=== PATIENT | female | born 2000 | race Caucasian/White ===

== ENCOUNTER 2024-03-20 05:55 | Inpatient (IN) | payer BC, MEDICAID ==
[2024-03-20 06:19] VITALS: BMI 33.1
[2024-03-20] MEDS ORDERED: hydrALAZINE 20 MG/ML VIAL SLOW IVP PRN ×2 (06:57→07:39)
[2024-03-20] MEDS ORDERED: Docusate 100 MG CAP PO PRN (07:39)
[2024-03-20] MEDS ORDERED: Zolpidem Tartrate 5 MG TAB PO PRN (07:39)
[2024-03-20] MEDS ORDERED: Lidocaine 1% (PF) 30 ML VIAL SC PRN (07:39)
[2024-03-20] MEDS ORDERED: Misoprostol 200 MCG TAB PR PRN (07:39)
[2024-03-20] MEDS ORDERED: Diphenoxylate HCl/Atropine Tablet PO PRN (07:39)
[2024-03-20] MEDS ORDERED: Promethazine HCl 25 MG/ML VIAL IM PRN ×2 (07:39→14:22)
[2024-03-20] MEDS ORDERED: Carboprost 250 MCG/ML AMP IM PRN (07:39)
[2024-03-20] MEDS ORDERED: Methylergonovine 0.2 MG/ML VIAL IM PRN (07:39)
[2024-03-20] MEDS ORDERED: Ondansetron PF 4 MG/2 ML Vial IVP PRN ×2 (07:39→14:22)
[2024-03-20] MEDS ORDERED: Tranexamic Acid 1,000 MG/10 ML VIAL IVP PRN (07:39)
[2024-03-20] MEDS ORDERED: Oxytocin 30 units/NS 500 ML 500 ML IV SCH (07:45)
[2024-03-20] MEDS ORDERED: Bupivacaine PF 0.5% 30 ML VIAL ONE (08:00)
[2024-03-20] MEDS ORDERED: Bupivacaine 0.25% HCL 30 ML VIAL ONE (08:00)
[2024-03-20] MEDS: Lactated Ringer's 1,000 ML IV SCH (09:32)
[2024-03-20] MEDS: Penicillin G Potassium 5 MILL.UNITS in Sodium Chloride 0.9% 100 ML IVPB SCH (09:32)
[2024-03-20] MEDS: Misoprostol 100 MCG TAB VAG SCH (09:32)
[2024-03-20 10:38] LABS: Hematocrit 37.7 % (34.9-44.5); Hemoglobin 12.4 g/dL (12.0-15.5); Mean Corpuscular HGB CONC 32.9 g/dL (32.0-36.0); Mean Corpuscular Hemoglobin 28.3 pg (27.0-33.0); Mean Corpuscular Volume 86.1 fL (81.6-98.3); Mean Platelet Volume 10.8 fL (7.4-10.4); Platelet Count 332 10x3/uL (150-450); RBC Distribution Width 12.8 % (11.5-14.5); Red Blood Cell (RBC) Count 4.38 10x6/uL (3.90-5.03); White Blood Cell (WBC) Count 13.6 10x3/uL (3.5-10.5)
[2024-03-20 11:07] LABS: Syphilis Antibody Nonreactive (Nonreactive); Syphilis Antibody Index 0.05 S/CO (<1.00 Non-Reactive)
[2024-03-20 11:08] LABS: Hep B Surf Ag - L&D Non-Reactive S/CO (NonReactive)
[2024-03-20 12:14] LABS: Fetal Membranes Rupture RUPTURE DETECTED (No Rupture)
[2024-03-20] MEDS: fentaNYL 50 mcg/mL 1 mL Vial SLOW IVP PRN (12:51)
[2024-03-20] MEDS: Oxytocin 30 units/NS 500 ML 500 ML IV SCH (12:57)
[2024-03-20] MEDS: fentaNYL/Ropivacaine Epidural 100 ML ONE (14:15)
[2024-03-20] MEDS ORDERED: diphenhydrAMINE 50 MG/ML VIAL IVP PRN (14:22)
[2024-03-20] MEDS ORDERED: Lactated Ringer's 500 ML IV PRN (14:22)
[2024-03-20] MEDS ORDERED: Naloxone HCl 0.4 mg/ml Vial IVP PRN ×2 (14:22)
[2024-03-20] MEDS ORDERED: Moisturizing Cream (Eucerin) 113 GM JAR TOP PRN (14:22)
[2024-03-20] MEDS ORDERED: Acetaminophen 325 MG TAB PO PRN (14:22)
[2024-03-20] MEDS ORDERED: ePHEDrine Sulfate 50 MG/10 ML VIAL SLOW IVP PRN (14:22)
[2024-03-20] MEDS ORDERED: fentaNYL 2 mcg/Ropivacaine 0.2% Epidural 100 ML CADD EPIDURAL SCH (14:30)
[2024-03-20] MEDS ORDERED: Communication Order-Pharmacy FS SCH (14:30)
[2024-03-20] MEDS: Penicillin G 2.5 MILL.units 2.5 MILL.UNITS in Premix 1 BAG IVPB SCH (19:16)
[2024-03-20] MEDS: Acetaminophen 500 MG TAB PO PRN (22:00)
[2024-03-21] MEDS: Ampicillin 2 GM in Sodium Chloride 0.9% 100 ML IVPB SCH (06:37)
[2024-03-21] MEDS: Ibuprofen 800 MG TAB PO SCH (06:42)
[2024-03-21] MEDS: Gentamicin Sulfate 80 MG in Premix 1 BAG IVPB SCH (07:08)
[2024-03-21] MEDS ORDERED: diphenhydrAMINE 25 MG CAP PO PRN (07:45)
[2024-03-21] MEDS ORDERED: Lanolin Ointment 7 GM TUBE TOP PRN (07:45)
[2024-03-21] MEDS ORDERED: Preparation H Ointment 28 GM TUBE PR PRN (07:45)
[2024-03-21] MEDS ORDERED: Boostrix 0.5 ML (Tdap) VIAL (>/=7 yrs of age) IM ONE (07:45)
[2024-03-21] MEDS ORDERED: hydrALAZINE 20 MG/ML VIAL SLOW IVP PRN (07:45)
[2024-03-21] MEDS ORDERED: Milk Of Magnesia 30 ML UDCUP PO PRN (07:45)
[2024-03-21] MEDS ORDERED: traMADol HCl 50 MG TAB PO PRN (07:45)
[2024-03-21] MEDS ORDERED: Bisacodyl 10 MG SUPP PR PRN (07:45)
[2024-03-21] MEDS ORDERED: Gentamicin 80 MG/2 ML VIAL IVPB SCH (08:00)
[2024-03-21] MEDS: Ferrous Sulfate 325 MG TAB PO SCH (16:07)
[2024-03-21] MEDS: Prenatal Vitamin 1 TAB PO SCH (16:09)
[2024-03-21] MEDS: Docusate 100 MG CAP PO SCH (16:09)
[2024-03-21] MEDS: Benzocaine-Menthol 82.5 ML CAN TOP PRN (18:03)
[2024-03-21] MEDS: Oxytocin 30 units/NS 500 ML 500 ML ONE (19:30)
[2024-03-22 20:17] VITALS: TEMP 98.5
[2024-03-23 08:01] VITALS: BP 105/56
== END 2024-03-23 14:00 | disposition home or self-care (01) | DRG 806 ==
LOC: CSHLD/OP 05:55 → CSHLD 09:22 → CSHPP 03-21 15:35
PROVIDERS: ADMIT Obstetrics & Gynecology; ATTEND Obstetrics & Gynecology
PROC: 10E0XZZ Delivery of Products of Conception, External Approach (ICD-10-PCS; principal; 2024-03-21)
PROC: 0UQGXZZ Repair Vagina, External Approach (ICD-10-PCS; 2024-03-21)
DX: O24.420 Gestational diabetes mellitus in childbirth, diet controlled (principal); O41.03X0 Oligohydramnios, third trimester, not applicable or unspecified; Z37.0 Single live birth; O71.4 Obstetric high vaginal laceration alone; Z3A.38 38 weeks gestation of pregnancy; O99.824 Streptococcus B carrier state complicating childbirth
CPT/HCPCS: 36415; 36416; 51702; 76819; 84112; 85027; 86780; 86850; 86900; 86901; 87340; 88307; 99285; J0290; J0665; J1580; J2540; J2590; J3010; J7120

== ENCOUNTER 2024-04-20 13:22 | Inpatient (IN) | payer BC, MEDICAID ==
[2024-04-20] MEDS ORDERED: Morphine 4 MG/ML VIAL ONE (14:08)
[2024-04-20] MEDS ORDERED: Ondansetron PF 4 MG/2 ML Vial ONE (14:08)
[2024-04-20 14:22] LABS: #Basophils 0.02 10x3/uL (0.0-0.2); #Eosinophils 0.06 10x3/uL (0.0-0.5); #Monocytes 0.45 10x3/uL (0.0-1.1); %Basophils 0.2 % (0.0-2.0); %Eosinophils 0.7 % (0.0-6.0); %Lymphocytes 14.1 % (18.0-47.0); %Monocytes 5.5 % (0.0-10.0); %Neutrophils 79.4 % (40.0-75.0); Hematocrit 37.8 % (34.9-44.5); Hemoglobin 11.8 g/dL (12.0-15.5); Mean Corpuscular HGB CONC 31.2 g/dL (32.0-36.0); Mean Corpuscular Hemoglobin 27.1 pg (27.0-33.0); Mean Corpuscular Volume 86.9 fL (81.6-98.3); Mean Platelet Volume 9.6 fL (7.4-10.4); Platelet Count 371 10x3/uL (150-450); RBC Distribution Width 12.6 % (11.5-14.5); Red Blood Cell (RBC) Count 4.35 10x6/uL (3.90-5.03); White Blood Cell (WBC) Count 8.2 10x3/uL (3.5-10.5)
[2024-04-20 14:34] LABS: PTT 27.8 sec (22.0-33.0); Prothrombin Time 10.9 sec (9.5-12.1)
[2024-04-20 14:41] LABS: ALT (SGPT) 272 U/L (8-55); AST (SGOT) 457 U/L (5-34); Albumin 3.8 g/dL (3.5-5.0); Alkaline Phosphatase 246 U/L (40-110); Anion Gap 15 mmol/L (10-20); BUN (Urea Nitrogen) 10 mg/dL (7.0-18.7); Bilirubin, Total 1.9 mg/dL (0.2-1.2); Calc. Creatinine Clearance 0 mL/min (70-130); Calcium 9.2 mg/dL (7.8-10.44); Carbon Dioxide 22 mmol/L (22-29); Chloride 109 mmol/L (98-107); Estimated GFR 126; Globulin 3.2 g/dL (2.4-3.5); Glucose 84 mg/dL (70-105); Lipase 18 U/L (8-78); Potassium 4.5 mmol/L (3.5-5.1); Sodium 141 mmol/L (136-145)
[2024-04-20] MEDS ORDERED: Morphine 2 MG/ML VIAL SLOW IVP PRN (16:17)
[2024-04-20] MEDS ORDERED: fentaNYL 50 mcg/mL 1 mL Vial ONE (17:10)
[2024-04-20 17:40] VITALS: BMI 30.7
[2024-04-20] MEDS: Lactated Ringer's 1,000 ML IV SCH (17:57)
[2024-04-21 04:13] LABS: #Basophils 0.06 10x3/uL (0.0-0.2); #Eosinophils 0.26 10x3/uL (0.0-0.5); #Monocytes 0.44 10x3/uL (0.0-1.1); #Neutrophils 3.83 10x3/uL (1.5-8.4); %Basophils 0.9 % (0.0-2.0); %Eosinophils 3.8 % (0.0-6.0); %Lymphocytes 32.7 % (18.0-47.0); %Monocytes 6.4 % (0.0-10.0); %Neutrophils 55.9 % (40.0-75.0); Hemoglobin 10.3 g/dL (12.0-15.5); Mean Corpuscular HGB CONC 31.2 g/dL (32.0-36.0); Mean Corpuscular Hemoglobin 27.5 pg (27.0-33.0); Mean Platelet Volume 9.1 fL (7.4-10.4); Platelet Count 310 10x3/uL (150-450); RBC Distribution Width 12.7 % (11.5-14.5); Red Blood Cell (RBC) Count 3.75 10x6/uL (3.90-5.03); White Blood Cell (WBC) Count 6.9 10x3/uL (3.5-10.5)
[2024-04-21 04:29] LABS: ALT (SGPT) 275 U/L (8-55); AST (SGOT) 267 U/L (5-34); Albumin 3.2 g/dL (3.5-5.0); Alkaline Phosphatase 246 U/L (40-110); Anion Gap 13 mmol/L (10-20); BUN (Urea Nitrogen) 7 mg/dL (7.0-18.7); Bilirubin, Total 1.4 mg/dL (0.2-1.2); Calc. Creatinine Clearance 174 mL/min (70-130); Calcium 8.6 mg/dL (7.8-10.44); Carbon Dioxide 22 mmol/L (22-29); Chloride 111 mmol/L (98-107); Estimated GFR 127; Globulin 2.7 g/dL (2.4-3.5); Glucose 73 mg/dL (70-105); Potassium 3.7 mmol/L (3.5-5.1); Protein, Total 5.9 g/dL (6.0-8.3); Sodium 142 mmol/L (136-145)
[2024-04-21] MEDS ORDERED: Bupivacaine/Epinephrine 0.25% 30 ML VIAL ONE (07:23)
[2024-04-21] MEDS ORDERED: Glucagon 1 MG/ML KIT ONE (07:23)
[2024-04-21] MEDS ORDERED: Iopamidol 30 ML ONE (07:23)
[2024-04-21] MEDS ORDERED: Midazolam HCl 2 mg/2 ml Vial ONE (08:46)
[2024-04-21] MEDS ORDERED: Fentanyl 250 MCG/5 ML VIAL ONE (08:46)
[2024-04-21] MEDS ORDERED: PROPOFOL 20 ML ONE (08:46)
[2024-04-21] MEDS ORDERED: Ondansetron PF 4 MG/2 ML Vial ONE (08:47)
[2024-04-21] MEDS ORDERED: Dexamethasone 4 mg/ml Vial ONE (08:47)
[2024-04-21] MEDS ORDERED: Rocuronium Bromide 10 MG/ML (10ML VIAL) ONE (08:47)
[2024-04-21] MEDS ORDERED: Lidocaine 1% PF 5 ML VIAL ONE (08:47)
[2024-04-21] MEDS ORDERED: CEFAZOLIN 1 GM VIAL ONE (08:52)
[2024-04-21] MEDS ORDERED: Water For Injection,Sterile 20 ML ONE (08:53)
[2024-04-21] MEDS ORDERED: SUGAMMADEX SODIUM 200 MG/2 ML VIAL ONE (10:06)
[2024-04-21] MEDS ORDERED: Meperidine HCl/PF 25 MG (1 mL) VIAL ONE (10:18)
[2024-04-21] MEDS ORDERED: fentaNYL 50 mcg/mL 1 mL Vial ONE (10:44)
[2024-04-21] MEDS: FLU (Fluarix Triv) TS24-25(6MOS UP)/PF 45 MCG/0.5 ML Syringe IM ONE (12:34)
[2024-04-21] MEDS: Ondansetron PF 4 MG/2 ML Vial IVP PRN (12:37)
[2024-04-21] MEDS: Ketorolac Tromethamine 30 MG (1 mL) VIAL IVP PRN (12:38)
[2024-04-21] MEDS: Acetaminophen/Codeine 30-300mg Tablet PO PRN (12:38)
[2024-04-21 17:00] VITALS: BP 110/66; TEMP 99
== END 2024-04-21 18:26 | disposition home or self-care (01) | DRG 769 ==
LOC: CSHERS 13:22 → CSHTELE 17:13
PROVIDERS: ADMIT Surgery; ATTEND Surgery
PROC: 0FT44ZZ Resection of Gallbladder, Percutaneous Endoscopic Approach (ICD-10-PCS; principal; 2024-04-21)
PROC: BF13YZZ Fluoroscopy of Gallbladder and Bile Ducts using Other Contrast (ICD-10-PCS; 2024-04-21)
DX: O99.63 Diseases of the digestive system complicating the puerperium (principal); K80.20 Calculus of gallbladder without cholecystitis without obstruction
CPT/HCPCS: 36415; 47532; 76705; 80053; 83690; 85025; 85610; 85730; 86850; 86900; 86901; 88304; 96374; 96375; C1713; J0690; J1100; J1611; J1885; J2175; J2250; J2272; J2405; J2704; J3010; J7120; Q9967